=== PATIENT | female | born 1985 | race Hispanic/Latino ===

== ENCOUNTER → 2025-04-03 10:19 | Outpatient (CLI) | payer OTHER, SELFPAY ==
[2025-04-03 11:00] LABS: Hematocrit 39.6 % (36-46); Hemoglobin 13.5 g/dL (12.0-16.0); Mean Corpuscular HGB Conc 34.2 % (30-36); Mean Corpuscular Hemoglobin 30.5 PG (26-34); Mean Corpuscular Volume 89.2 fL (80-100); Platelet Count 414 X10^3/uL (150-400)
[2025-04-03 11:26] LABS: HEMOLYSIS < 15 (0-50); Iron 90 ug/dL (37-170)
[2025-04-03 11:31] LABS: Hemoglobin A1C% w Est Avg Glu 4.9 % (4.0-6.0)
[2025-04-03 11:39] LABS: Percent Iron Saturation 25 % (15-50); Total Iron Binding Capacity 355 ug/dL (265-497); Transferrin 285 mg/dL (206-381)
[2025-04-03 11:44] LABS: Vitamin D 25 Hydroxy (D3) 39.4 ng/mL (30.0-100.0)
[2025-04-03 11:58] LABS: Thyroid Stimulating Hormone 4.45 uIU/mL (0.47-4.68)
[2025-04-03 12:09] LABS: Ferritin 24 ng/mL (6-137)
== END ==
PROVIDERS: PCP Student in an Organized Health Care Education/Training Program; Referring Provider Student in an Organized Health Care Education/Training Program; Visit Provider Student in an Organized Health Care Education/Training Program
DX: Z13.0 Encounter for screening for diseases of the blood and blood-forming organs and certain disorders involving the immune mechanism (principal); R53.83 Other fatigue; N92.0 Excessive and frequent menstruation with regular cycle; R79.89 Other specified abnormal findings of blood chemistry
CPT/HCPCS: 82306; 82728; 83036; 83540; 83550; 84443; 85027